=== PATIENT | male | born 1955 ===

== ENCOUNTER 2022-06-24 22:06 | Inpatient (IN) | payer OTHER ==
[~2022-06-24] VITALS: Ht 172.7 cm; Wt 95.2 kg
[2022-06-24] MEDS ORDERED: ACETAMINOPHEN 325 MG TAB ONE (22:46)
[2022-06-24] MEDS ORDERED: ZOSYN 3.375GM +NS 50ML IV ONE (23:00)
[2022-06-24] MEDS ORDERED: VANCOMYCIN KIT 1 GM/250 ML IV.KIT IV ONE (23:00)
[2022-06-24] MEDS ORDERED: ACETAMINOPHEN 325 MG TAB PO ONE (23:00)
[2022-06-24 23:10] LABS: BASOPHILS % (AUTO) 0.2 % (0.0-5.0); EOSINOPHILS % (AUTO) 0.3 % (0.0-8.0); HEMATOCRIT 32.4 % (42-54); LYMPHOCYTES % (AUTO) 4.6 % (21.0-51.0); MEAN CORPUSCULAR HEMOGLOBIN 28.7 pg (27.0-33.0); MEAN CORPUSCULAR HGB CONC 33.6 g/dL (32.0-36.0); MEAN CORPUSCULAR VOLUME 85.3 fL (79-99); MONOCYTES % (AUTO) 1.6 % (3.0-13.0); NEUTROPHILS % (AUTO) 92.8 % (40.0-77.0); PLATELET COUNT (AUTO) 244 K/uL (130-400); RED CELL DISTRIBUTION WIDTH 16.3 % (11.0-15.5); WHITE BLOOD COUNT (AUTO) 19.3 K/uL (4.8-10.8)
[2022-06-24 23:22] LABS: CARBON DIOXIDE 26 mmol/L (21-32); CHLORIDE 96 mmol/L (101-111); CREATININE 1.6 mg/dL (0.5-1.5); GLOMERULAR FILTR. RATE CALC 46 mL/min (>60); GLUCOSE,RANDOM 116 mg/dL (70-105); POTASSIUM 3.8 mmol/L (3.5-5.1); SODIUM SERUM 132 mmol/L (136-145); UREA NITROGEN, BLOOD 29 mg/dL (7-18)
[2022-06-24 23:31] LABS: ALANINE AMINOTRANSFERASE 21 U/L (12-78); AMMONIA < 10 umol/L (11-32); ASPARTATE AMINOTRANSFERASE 42 U/L (10-37)
[2022-06-24 23:32] LABS: ACETAMINOPHEN < 1 mcg/mL (10-29); ALBUMIN 3.1 g/dL (3.5-5.0); ALCOHOL, BLOOD < 3 mg/dL (0-10); SALICYLATE < 2.8 mg/dL (2.8-20.0); TOTAL PROTEIN, SERUM 9.6 g/dL (6.0-8.3)
[2022-06-24 23:42] LABS: CREATINE KINASE, TOTAL 996 U/L (21-232)
[2022-06-25] MEDS ORDERED: MORPHINE 4 MG SYG IV PRN (00:30)
[2022-06-25] MEDS ORDERED: VANCOMYCIN PROTOCOL PER PHARMACY IV PRN (00:30)
[2022-06-25] MEDS ORDERED: LACTATED RINGERS 1000ML 1,000 ML IV SCH (00:30)
[2022-06-25] MEDS ORDERED: MORPHINE 2 MG SYG IV PRN (00:30)
[2022-06-25] MEDS ORDERED: ACETAMINOPHEN 325 MG TAB PO PRN (00:30)
[2022-06-25] MEDS ORDERED: LACTATED RINGERS 1000ML 2,052 ML IV ONE ×2 (00:30→02:30)
[2022-06-25] MEDS ORDERED: ONDANSETRON 4MG INJ IV PRN (00:30)
[2022-06-25] MEDS ORDERED: ZOSYN 3.375GM+NS 50ML 50 ML IV SCH (05:00)
[2022-06-25 05:27] LABS: BASOPHILS % (AUTO) 0.1 % (0.0-5.0); HEMATOCRIT 26.4 % (42-54); LYMPHOCYTES % (AUTO) 4.9 % (21.0-51.0); MEAN CORPUSCULAR HGB CONC 32.6 g/dL (32.0-36.0); MONOCYTES % (AUTO) 3.2 % (3.0-13.0); NEUTROPHILS % (AUTO) 91.2 % (40.0-77.0); PLATELET COUNT (AUTO) 187 K/uL (130-400); RED BLOOD CELL COUNT(AUTO) 3.07 MIL/uL (4.50-6.20); RED CELL DISTRIBUTION WIDTH 16.5 % (11.0-15.5); WHITE BLOOD COUNT (AUTO) 15.4 K/uL (4.8-10.8)
[2022-06-25 05:34] LABS: APPEARANCE,URINE CLEAR (CLEAR); BILIRUBIN,URINE NEGATIVE (NEGATIVE); COLOR,URINE YELLOW (YELLOW); GLUCOSE, URINE (UA) NEGATIVE (NEGATIVE); KETONES,URINE NEGATIVE (NEGATIVE); LEUKOCYTE ESTERASE ,URINE NEGATIVE Leu/uL (NEGATIVE); NITRATE,URINE NEGATIVE (NEGATIVE); OCCULT BLOOD,URINE LARGE (NEGATIVE); PROTEIN,URINE 100 mg/dL (NEGATIVE); UROBILINOGEN,URINE 0.2 mg/dL (0.2-1.0)
[2022-06-25 05:38] LABS: BACTERIA,URINE RARE /HPF (None Seen); MUCUS,URINE RARE LPF (None Seen); SQUAMOUS EPITHELIAL CELL,UR RARE /HPF (0-2)
[2022-06-25 05:40] LABS: CREATININE 1.4 mg/dL (0.5-1.5); MAGNESIUM 1.7 mg/dL (1.80-2.40); POTASSIUM 3.6 mmol/L (3.5-5.1)
[2022-06-25] MEDS ORDERED: MVIT PO (05:43)
[2022-06-25] MEDS: FAMOTIDINE 20MG VIAL IV SCH (07:48)
[2022-06-25] MEDS: ENOXAPARIN SODIUM 40 MG/0.4 ML SYRINGE SQ SCH (07:55)
[2022-06-25] MEDS: VANCOMYCIN 1.25 GM/250 ML BAG 250 ML IV SCH ×2 (08:18→21:35)
[2022-06-25 09:32] LABS: RETICULOCYTE % (AUTO) 0.97 % (0.42-2.23)
[2022-06-25 09:33] LABS: CREATININE,URINE RANDOM 156 mg/dL (30-135); SODIUM,URINE RANDOM 34 mmol/l (40-220)
[2022-06-25 10:00] LABS: MYOGLOBIN 677 ng/mL (10-92); PHOSPHORUS 3.1 mg/dL (2.5-4.9)
[2022-06-25 10:02] LABS: % IRON SATURATION 12.2 % (30-44)
[2022-06-25] MEDS ORDERED: RENAL DOSE IV SCH (11:00)
[2022-06-25] MEDS ORDERED: ASCORBIC ACID 500 MG TAB PO SCH (11:30)
[2022-06-25] MEDS ORDERED: IRON SUCROSE COMPLEX 500 MG in 0.9%NACL 50ML 50 ML IV SCH (11:30)
[2022-06-25] MEDS ORDERED: ZINC SULFATE 220 CAPSULE PO SCH (11:30)
[2022-06-25] MEDS: ASCORBIC ACID 500 MG TAB PO SCH (11:42)
[2022-06-25] MEDS: LACTATED RINGERS 1000ML 1,000 ML IV SCH ×2 (11:42→18:00)
[2022-06-25 11:56] LABS: AMPHET/METH SCREEN,URINE NEGATIVE (NEGATIVE); BARBITURATE SCREEN, URINE NEGATIVE (NEGATIVE); BENZODIAZEPINES SCREEN,URINE NEGATIVE (NEGATIVE); CANNABINOID SCREEN,URINE NEGATIVE (NEGATIVE); COCAINE SCREEN,URINE NEGATIVE (NEGATIVE); OPIATE SCREEN,URINE NEGATIVE (NEGATIVE); PHENCYCLIDINE SCREEN,URINE NEGATIVE (NEGATIVE)
[2022-06-25] MEDS: CEFEPIME HCL 2 GM VIAL IVP SCH ×2 (12:06→21:36)
[2022-06-25] MEDS: EPOETIN ALFA-EPBX (NON-ESRD) 10,000 UNIT/ML VIAL SQ SCH (13:35)
[2022-06-25] MEDS: NIACIN 250 MG TABLET.SA PO SCH ×2 (13:35→21:35)
[2022-06-25 23:55] VITALS: BP 89/49
[2022-06-26] VITALS (64 sets, daily range): BP systolic 80–164; BP diastolic 36–97
[2022-06-26] MEDS ORDERED: ACETAMINOPHEN 650 MG SUPPOSITORY RC PRN (01:30)
[2022-06-26] MEDS ORDERED: PHENYLEPHRINE HCL 10 MG in 0.9% NACL 250ML 250 ML IV SCH (02:00)
[2022-06-26] MEDS ORDERED: AMIODARONE 900MG VIAL 360 MG in DEXTROSE 5%-WATER 200 ML IV SCH ×2 (02:00→14:30)
[2022-06-26] MEDS ORDERED: AMIODARONE 150MG VIAL ONE (02:42)
[2022-06-26] MEDS: LACTATED RINGERS 1000ML 1,000 ML IV SCH (05:10)
[2022-06-26 07:07] LABS: BASOPHILS % (AUTO) 0.2 % (0.0-5.0); EOSINOPHILS % (AUTO) 0.2 % (0.0-8.0); LYMPHOCYTES % (AUTO) 4.3 % (21.0-51.0); MEAN CORPUSCULAR HEMOGLOBIN 28.1 pg (27.0-33.0); MEAN CORPUSCULAR HGB CONC 32.7 g/dL (32.0-36.0); MEAN CORPUSCULAR VOLUME 86.1 fL (79-99); NEUTROPHILS % (AUTO) 90.6 % (40.0-77.0); PLATELET COUNT (AUTO) 177 K/uL (130-400); RED BLOOD CELL COUNT(AUTO) 3.02 MIL/uL (4.50-6.20); RED CELL DISTRIBUTION WIDTH 16.6 % (11.0-15.5); WHITE BLOOD COUNT (AUTO) 13.6 K/uL (4.8-10.8)
[2022-06-26 07:30] LABS: ALBUMIN 1.9 g/dL (3.5-5.0); CREATININE 1.1 mg/dL (0.5-1.5); PHOSPHORUS 2.4 mg/dL (2.5-4.9); POTASSIUM 3.2 mmol/L (3.5-5.1); THYROID STIMULATING HORMONE 1.6 uIU/mL (0.36-3.74); TOTAL PROTEIN, SERUM 6.9 g/dL (6.0-8.3); URIC ACID 3.4 mg/dL (2.6-7.2)
[2022-06-26 07:41] LABS: CRP QUANTITATIVE 294.9 mg/L (0.00-9.0)
[2022-06-26 08:13] LABS: ERYTHROCYTE SEDIMENTATION RATE 112 MM/HR (0-20)
[2022-06-26] MEDS: FAMOTIDINE 20MG VIAL IV SCH (08:42)
[2022-06-26] MEDS: IRON SUCROSE COMPLEX 100 MG/5 ML VIAL IVP SCH (08:50)
[2022-06-26] MEDS: ZINC SULFATE 220 CAPSULE PO SCH (08:51)
[2022-06-26] MEDS: ASCORBIC ACID 500 MG TAB PO SCH (08:51)
[2022-06-26] MEDS: ENOXAPARIN SODIUM 40 MG/0.4 ML SYRINGE SQ SCH (08:52)
[2022-06-26] MEDS: VANCOMYCIN 1.25 GM/250 ML BAG 250 ML IV SCH ×2 (08:59→20:32)
[2022-06-26] MEDS ORDERED: IRON SUCROSE COMPLEX 200 MG in 0.9%NACL 50ML 50 ML IV SCH (09:00)
[2022-06-26] MEDS ORDERED: AMIODARONE 540 MG/D5W 300ML (0.5MG/MIN) IV SCH ×2 (09:00)
[2022-06-26] MEDS ORDERED: PHARMACY COMMUNICATION MISC SCH (09:00)
[2022-06-26] MEDS ORDERED: KCL 20 MEQ ERTAB PO PRN (10:00)
[2022-06-26] MEDS ORDERED: POTASSIUM CHLORIDE 20MEQ/100ML 100 ML IV PRN (10:00)
[2022-06-26] MEDS ORDERED: LIDOCAINE HCL-MPF 1% 2ML VIAL IV PRN (10:00)
[2022-06-26] MEDS: NIACIN 250 MG TABLET.SA PO SCH ×2 (11:30→20:36)
[2022-06-26] MEDS: EPOETIN ALFA-EPBX (NON-ESRD) 10,000 UNIT/ML VIAL SQ SCH (11:30)
[2022-06-26] MEDS: 0.9%NACL 1000ML 1,000 ML IV SCH ×2 (12:31→17:43)
[2022-06-26] MEDS ORDERED: AMIODARONE 900MG VIAL 150 MG in DEXTROSE 5%-WATER 100 ML IV SCH (14:30)
[2022-06-26 15:01] LABS: HEMOGLOBIN A1C 5.6 % (4.0-6.0)
[2022-06-26 16:02] LABS: INR 1.08 (0.85-1.15); PROTHROMBIN TIME 11.7 SEC (9.6-11.6)
[2022-06-26 16:03] LABS: PARTIAL THROMBOPLASTIN TIME 38.4 SEC (26.3-35.5)
[2022-06-26] MEDS: ZOSYN 3.375GM +NS 50ML IV SCH ×2 (16:48→23:19)
[2022-06-26] MEDS: ENOXAPARIN SODIUM 100 MG/1 ML SQ SCH (20:33)
[2022-06-26] MEDS ORDERED: AMIODARONE 900MG VIAL 540 MG in DEXTROSE 5%-WATER 300 ML IV SCH (21:00)
[2022-06-26] MEDS ORDERED: MIDODRINE HCL 5 MG TABLET PO SCH (21:00)
[2022-06-27] VITALS (76 sets, daily range): BP systolic 74–150; BP diastolic 41–98
[2022-06-27] MEDS: 0.9%NACL 1000ML 1,000 ML IV SCH ×3 (01:35→19:08)
[2022-06-27 04:03] LABS: BASOPHILS % (AUTO) 0.3 % (0.0-5.0); EOSINOPHILS % (AUTO) 1.1 % (0.0-8.0); HEMATOCRIT 26.8 % (42-54); LYMPHOCYTES % (AUTO) 8.8 % (21.0-51.0); MEAN CORPUSCULAR HEMOGLOBIN 28.6 pg (27.0-33.0); MEAN CORPUSCULAR HGB CONC 32.8 g/dL (32.0-36.0); MONOCYTES % (AUTO) 3.4 % (3.0-13.0); NEUTROPHILS % (AUTO) 85.1 % (40.0-77.0); PLATELET COUNT (AUTO) 204 K/uL (130-400); RED BLOOD CELL COUNT(AUTO) 3.08 MIL/uL (4.50-6.20); RED CELL DISTRIBUTION WIDTH 16.6 % (11.0-15.5)
[2022-06-27 04:20] LABS: CREATININE 0.9 mg/dL (0.5-1.5); MAGNESIUM 1.6 mg/dL (1.80-2.40); PHOSPHORUS 1.7 mg/dL (2.5-4.9); POTASSIUM 3.2 mmol/L (3.5-5.1)
[2022-06-27] MEDS: ZOSYN 3.375GM +NS 50ML IV SCH ×3 (06:56→20:29)
[2022-06-27] MEDS ORDERED: OLANZAPINE 5 MG TAB PO SCH (09:00)
[2022-06-27] MEDS ORDERED: METOPROLOL TARTRATE 25 MG TAB PO SCH ×2 (09:00→21:00)
[2022-06-27] MEDS: ASCORBIC ACID 500 MG TAB PO SCH (10:12)
[2022-06-27] MEDS: ZINC SULFATE 220 CAPSULE PO SCH (10:13)
[2022-06-27] MEDS: FAMOTIDINE 20MG VIAL IV SCH (10:17)
[2022-06-27] MEDS: ENOXAPARIN SODIUM 100 MG/1 ML SQ SCH ×2 (10:17→20:25)
[2022-06-27] MEDS ORDERED: POTASSIUM PHOS 15 mMOL+NS250ML 250 ML IV PRN (10:30)
[2022-06-27] MEDS ORDERED: LABETALOL 20MG VIAL IV PRN (10:30)
[2022-06-27] MEDS: EPOETIN ALFA-EPBX (NON-ESRD) 10,000 UNIT/ML VIAL SQ SCH (11:30)
[2022-06-27] MEDS: NIACIN 250 MG TABLET.SA PO SCH ×2 (11:30→20:24)
[2022-06-27] MEDS: IRON SUCROSE COMPLEX 100 MG/5 ML VIAL IVP SCH (11:40)
[2022-06-27] MEDS: VANCOMYCIN 1.25 GM/250 ML BAG 250 ML IV SCH (11:48)
[2022-06-27] MEDS: MAGNESIUM 2GM PREMIX 50ML 50 ML IV PRN (11:49)
[2022-06-27] MEDS: POTASSIUM PHOS 15 mMOL+NS250ML 250 ML IV PRN (14:44)
[2022-06-27] MEDS: AMIODARONE 200 MG TABLET PO SCH (21:00)
[2022-06-27] MEDS: METOPROLOL TARTRATE 25 MG TAB PO SCH (21:00)
[2022-06-27] MEDS ORDERED: METOPROLOL TARTRATE 25 MG TAB ONE (21:06)
[2022-06-27] MEDS ORDERED: AMIODARONE 200 MG TABLET PO ONE (21:06)
[2022-06-28] VITALS (32 sets, daily range): BP systolic 82–130; BP diastolic 34–88
[2022-06-28] MEDS: 0.9%NACL 1000ML 1,000 ML IV SCH ×3 (02:12→20:55)
[2022-06-28 03:36] LABS: HEMATOCRIT 26.2 % (42-54); MEAN CORPUSCULAR HEMOGLOBIN 28.7 pg (27.0-33.0); MEAN CORPUSCULAR HGB CONC 33.2 g/dL (32.0-36.0); MEAN CORPUSCULAR VOLUME 86.5 fL (79-99); RED BLOOD CELL COUNT(AUTO) 3.03 MIL/uL (4.50-6.20); RED CELL DISTRIBUTION WIDTH 16.7 % (11.0-15.5); WHITE BLOOD COUNT (AUTO) 10.3 K/uL (4.8-10.8)
[2022-06-28 03:57] LABS: ALBUMIN 1.7 g/dL (3.5-5.0); CREATININE 0.9 mg/dL (0.5-1.5); MAGNESIUM 1.9 mg/dL (1.80-2.40); PHOSPHORUS 2.3 mg/dL (2.5-4.9); POTASSIUM 3.3 mmol/L (3.5-5.1); TOTAL PROTEIN, SERUM 6.5 g/dL (6.0-8.3)
[2022-06-28] MEDS: ZOSYN 3.375GM +NS 50ML IV SCH ×3 (04:15→20:35)
[2022-06-28] MEDS: ASCORBIC ACID 500 MG TAB PO SCH (09:22)
[2022-06-28] MEDS: AMIODARONE 200 MG TABLET PO SCH ×2 (09:22→20:36)
[2022-06-28] MEDS: ZINC SULFATE 220 CAPSULE PO SCH (09:22)
[2022-06-28] MEDS: IRON SUCROSE COMPLEX 100 MG/5 ML VIAL IVP SCH (09:23)
[2022-06-28] MEDS: METOPROLOL TARTRATE 25 MG TAB PO SCH ×2 (09:23→20:36)
[2022-06-28] MEDS: FAMOTIDINE 20MG VIAL IV SCH (09:23)
[2022-06-28] MEDS: ENOXAPARIN SODIUM 100 MG/1 ML SQ SCH ×2 (09:25→20:36)
[2022-06-28] MEDS: POTASSIUM PHOS 15 mMOL+NS250ML 250 ML IV PRN (09:57)
[2022-06-28] MEDS: NIACIN 250 MG TABLET.SA PO SCH (12:26)
[2022-06-28] MEDS: EPOETIN ALFA-EPBX (NON-ESRD) 10,000 UNIT/ML VIAL SQ SCH (12:26)
[2022-06-28] MEDS: MAGNESIUM 2GM PREMIX 50ML 50 ML IV PRN (19:14)
[2022-06-28] MEDS ORDERED: MIDODRINE HCL 5 MG TABLET PO SCH (21:00)
[2022-06-29] VITALS (12 sets, daily range): BP systolic 94–131; BP diastolic 48–81
[2022-06-29] MEDS: NIACIN 250 MG TABLET.SA PO SCH ×2 (01:05→21:00)
[2022-06-29 03:53] LABS: BASOPHILS % (AUTO) 0.3 % (0.0-5.0); EOSINOPHILS % (AUTO) 3.4 % (0.0-8.0); HEMATOCRIT 26.3 % (42-54); LYMPHOCYTES % (AUTO) 15.5 % (21.0-51.0); MEAN CORPUSCULAR HEMOGLOBIN 28.3 pg (27.0-33.0); MEAN CORPUSCULAR HGB CONC 31.6 g/dL (32.0-36.0); MEAN CORPUSCULAR VOLUME 89.8 fL (79-99); MONOCYTES % (AUTO) 5.4 % (3.0-13.0); NUCLEATED RED BLOOD CELLS 0.5 % (0.0-0.19); PLATELET COUNT (AUTO) 275 K/uL (130-400); RED BLOOD CELL COUNT(AUTO) 2.93 MIL/uL (4.50-6.20); RED CELL DISTRIBUTION WIDTH 16.7 % (11.0-15.5); WHITE BLOOD COUNT (AUTO) 11.1 K/uL (4.8-10.8)
[2022-06-29 04:05] LABS: MAGNESIUM 2.2 mg/dL (1.80-2.40); PHOSPHORUS 2.3 mg/dL (2.5-4.9); POTASSIUM 3.6 mmol/L (3.5-5.1)
[2022-06-29] MEDS: ZOSYN 3.375GM +NS 50ML IV SCH ×3 (04:27→21:11)
[2022-06-29] MEDS: ZINC SULFATE 220 CAPSULE PO SCH (08:34)
[2022-06-29] MEDS: AMIODARONE 200 MG TABLET PO SCH ×2 (08:34→21:11)
[2022-06-29] MEDS: ENOXAPARIN SODIUM 100 MG/1 ML SQ SCH ×2 (08:35→21:11)
[2022-06-29] MEDS: POTASSIUM CHLORIDE 10% ELIXIR 20 MEQ/15 ML UDCUP PO PRN ×2 (08:37→11:19)
[2022-06-29] MEDS: FAMOTIDINE 20MG TAB PO SCH (08:37)
[2022-06-29] MEDS ORDERED: METOPROLOL TARTRATE 25 MG TAB PO SCH (09:00)
[2022-06-29] MEDS: ASCORBIC ACID 500 MG TAB PO SCH (09:00)
[2022-06-29] MEDS: IRON SUCROSE COMPLEX 100 MG/5 ML VIAL IVP SCH (11:19)
[2022-06-29] MEDS: 0.9%NACL 1000ML 1,000 ML IV SCH (12:49)
[2022-06-29] MEDS ORDERED: DOXYCYCLINE HYCLATE 100 MG TABLET PO SCH (13:30)
[2022-06-29] MEDS: DOXYCYCLINE HYCLATE 100 MG TABLET PO SCH ×2 (14:05→21:11)
[2022-06-30] MEDS: 0.9%NACL 1000ML 1,000 ML IV SCH (03:15)
[2022-06-30 03:41] VITALS: BP 129/70
[2022-06-30] MEDS: ZOSYN 3.375GM +NS 50ML IV SCH ×3 (04:24→21:09)
[2022-06-30 04:50] LABS: BASOPHILS % (AUTO) 0.7 % (0.0-5.0); EOSINOPHILS % (AUTO) 3.8 % (0.0-8.0); HEMATOCRIT 27.3 % (42-54); LYMPHOCYTES % (AUTO) 16.2 % (21.0-51.0); MEAN CORPUSCULAR HEMOGLOBIN 28.5 pg (27.0-33.0); MEAN CORPUSCULAR HGB CONC 32.2 g/dL (32.0-36.0); MEAN CORPUSCULAR VOLUME 88.3 fL (79-99); MONOCYTES % (AUTO) 5.9 % (3.0-13.0); NEUTROPHILS % (AUTO) 66.3 % (40.0-77.0); NUCLEATED RED BLOOD CELLS 1.3 % (0.0-0.19); PLATELET COUNT (AUTO) 339 K/uL (130-400); RED BLOOD CELL COUNT(AUTO) 3.09 MIL/uL (4.50-6.20); RED CELL DISTRIBUTION WIDTH 16.9 % (11.0-15.5); WHITE BLOOD COUNT (AUTO) 10.4 K/uL (4.8-10.8)
[2022-06-30 05:13] LABS: CREATININE 0.9 mg/dL (0.5-1.5); POTASSIUM 3.9 mmol/L (3.5-5.1)
[2022-06-30 08:05] VITALS: BP 134/72
[2022-06-30] MEDS: IRON SUCROSE COMPLEX 100 MG/5 ML VIAL IVP SCH (08:34)
[2022-06-30] MEDS: FAMOTIDINE 20MG TAB PO SCH (08:34)
[2022-06-30] MEDS: DOXYCYCLINE HYCLATE 100 MG TABLET PO SCH ×2 (08:34→21:09)
[2022-06-30] MEDS: ZINC SULFATE 220 CAPSULE PO SCH (08:34)
[2022-06-30] MEDS: ASCORBIC ACID 500 MG TAB PO SCH (08:34)
[2022-06-30] MEDS: AMIODARONE 200 MG TABLET PO SCH (08:34)
[2022-06-30] MEDS: ENOXAPARIN SODIUM 100 MG/1 ML SQ SCH (08:35)
[2022-06-30 12:05] VITALS: BP 131/83
[2022-06-30 16:04] VITALS: BP 135/75
[2022-06-30 20:00] VITALS: BP 136/77
[2022-06-30] MEDS: NIACIN 250 MG TABLET.SA PO SCH (21:09)
[2022-06-30 23:38] VITALS: BP 117/66
[2022-07-01 03:20] VITALS: BP 108/64
[2022-07-01] MEDS: ZOSYN 3.375GM +NS 50ML IV SCH ×3 (04:47→20:25)
[2022-07-01 05:04] LABS: BASOPHILS % (AUTO) 0.8 % (0.0-5.0); HEMATOCRIT 32.1 % (42-54); LYMPHOCYTES % (AUTO) 17.8 % (21.0-51.0); MEAN CORPUSCULAR HEMOGLOBIN 28.7 pg (27.0-33.0); MEAN CORPUSCULAR HGB CONC 31.2 g/dL (32.0-36.0); MONOCYTES % (AUTO) 5.2 % (3.0-13.0); NEUTROPHILS % (AUTO) 67.8 % (40.0-77.0); NUCLEATED RED BLOOD CELLS 2.1 % (0.0-0.19); PLATELET COUNT (AUTO) 368 K/uL (130-400); RED BLOOD CELL COUNT(AUTO) 3.49 MIL/uL (4.50-6.20); RED CELL DISTRIBUTION WIDTH 17.7 % (11.0-15.5)
[2022-07-01 05:20] LABS: POTASSIUM 4.1 mmol/L (3.5-5.1)
[2022-07-01 07:05] VITALS: BP 115/74
[2022-07-01] MEDS: FAMOTIDINE 20MG TAB PO SCH (08:10)
[2022-07-01] MEDS: IRON SUCROSE COMPLEX 100 MG/5 ML VIAL IVP SCH (08:10)
[2022-07-01] MEDS: ZINC SULFATE 220 CAPSULE PO SCH (08:11)
[2022-07-01] MEDS: ASCORBIC ACID 500 MG TAB PO SCH (08:11)
[2022-07-01] MEDS: ASPIRIN 325MG TAB PO SCH (08:11)
[2022-07-01] MEDS: DOXYCYCLINE HYCLATE 100 MG TABLET PO SCH ×2 (08:12→20:25)
[2022-07-01 12:00] VITALS: BP 126/79
[2022-07-01 16:18] VITALS: BP 132/86
[2022-07-01 19:00] VITALS: BP 143/87
[2022-07-01] MEDS: NIACIN 250 MG TABLET.SA PO SCH (20:25)
[2022-07-02] VITALS: BP 144/78
[2022-07-02] MEDS ORDERED: 0.9%NACL 50ML 50 ML IV ONE (03:48)
[2022-07-02 04:00] VITALS: BP 120/75
[2022-07-02] MEDS: ZOSYN 3.375GM +NS 50ML IV SCH (04:54)
[2022-07-02 08:05] VITALS: BP 146/88
[2022-07-02] MEDS: DOXYCYCLINE HYCLATE 100 MG TABLET PO SCH (09:05)
[2022-07-02] MEDS: ASPIRIN 325MG TAB PO SCH (09:05)
[2022-07-02] MEDS: FAMOTIDINE 20MG TAB PO SCH (09:05)
[2022-07-02] MEDS: IRON SUCROSE COMPLEX 100 MG/5 ML VIAL IVP SCH (09:05)
[2022-07-02] MEDS: ZINC SULFATE 220 CAPSULE PO SCH (09:05)
[2022-07-02] MEDS: ASCORBIC ACID 500 MG TAB PO SCH (09:05)
[2022-07-02] MEDS ORDERED: ASPI-1026 PO (10:44)
[2022-07-02 12:00] VITALS: BP 90/66
[2022-07-05] MEDS ORDERED: AMIODARONE 200 MG TABLET PO SCH (09:00)
== END 2022-07-02 13:12 | disposition home or self-care (01) | DRG 871 ==
LOC: EDH 22:06 → EDHIP 22:07 → 4CH 06-25 23:39 → 2CV 06-26 02:03 → 2BH 06-26 07:09 → 4AH 06-29 18:34
PROVIDERS: ADMIT Internal Medicine; ATTEND Internal Medicine
DX: A41.9 Sepsis, unspecified organism (principal); E43 Unspecified severe protein-calorie malnutrition; R65.21 Severe sepsis with septic shock; E87.1 Hypo-osmolality and hyponatremia; Z20.822 Contact with and (suspected) exposure to COVID-19; L03.115 Cellulitis of right lower limb; L03.116 Cellulitis of left lower limb; L97.919 Non-pressure chronic ulcer of unspecified part of right lower leg with unspecified severity; L97.929 Non-pressure chronic ulcer of unspecified part of left lower leg with unspecified severity; N17.9 Acute kidney failure, unspecified; M62.82 Rhabdomyolysis; E66.01 Morbid (severe) obesity due to excess calories; F17.210 Nicotine dependence, cigarettes, uncomplicated; I12.9 Hypertensive chronic kidney disease with stage 1 through stage 4 chronic kidney disease, or unspecified chronic kidney disease; I83.009 Varicose veins of unspecified lower extremity with ulcer of unspecified site; I48.91 Unspecified atrial fibrillation; D50.9 Iron deficiency anemia, unspecified; N18.30 Chronic kidney disease, stage 3 unspecified; I73.9 Peripheral vascular disease, unspecified; E86.1 Hypovolemia; E83.42 Hypomagnesemia; Z68.31 Body mass index [BMI] 31.0-31.9, adult; Z91.199 Patient's noncompliance with other medical treatment and regimen due to unspecified reason; Z59.00 Homelessness unspecified
CPT/HCPCS: 36415; 70450; 71045; 73630; 80048; 80053; 80202; 80305; 81001; 82140; 82550; 82570; 82607; 82728; 82746; 82948; 83036; 83540; 83550; 83605; 83735; 83874; 83880; 83930; 83935; 84100; 84145; 84156; 84300; 84443; 84484; 84550; 85025; 85027; 85045; 85610; 85651; 85730; 86140; 86850; 86900; 86901; 87040; 87070; 87076; 87077; 87088; 87186; 87635; 87804; 93005; 93306; 93356; 93925; 93970; 97039; C9803; G0378; G0481; J0282; J0692; J1650; J1756; J2543; J3475; J3480; J3490; J7030; J7060; J7120